=== PATIENT | male | born 1965 | race Caucasian/White ===

== ENCOUNTER 2025-04-20 10:24 | Emergency (ER) | payer OTHER ==
[~2025-04-20] VITALS: Ht 170.2 cm; Wt 115.0 kg
[2025-04-20] MEDS ORDERED: ELIQUIS5 MG PO (10:42)
[2025-04-20] MEDS ORDERED: CELECOXIB200 MG PO (10:43)
[2025-04-20 11:12] LABS: BASOPHILS 0.3 % (0.2-1.2); EOSINOPHILS 0.3 % (0.8-7.0); LYMPHOCYTES 8.8 % (21.8-53.1); MCH 29.9 PG (25.7-32.2); MCHC 33.5 g/dL (32.3-36.5); MCV 89.5 fL (79.0-92.2); MONOCYTES 12.9 % (5.3-12.2); NEUTROPHILS 77.0 % (34.0-67.9); RBC 5.31 M/uL (4.63-6.08)
[2025-04-20 11:24] LABS: INR 1.55 (0.80-1.30); PROTIME 17.6 Sec (11.2-14.2)
[2025-04-20 11:28] LABS: ALT (SGPT) 41.0 U/L (14-59); AST (SGOT) 34.0 U/L (15-37); GLOMERULAR FILTRATION RATE,EST 53.0 mL/min (>60); PROTEIN, TOTAL 7.4 g/dL (6.4-8.2); UREA NITROGEN 24.0 mg/dL (7-18)
[2025-04-20 11:31] LABS: LACTIC ACID, BLOOD 1.3 mmol/L (0.4-2.0)
[2025-04-20] MEDS ORDERED: VANCOMYCIN HCL 1 GM in DEXTROSE 5% 250 ML IV ONE (12:15)
[2025-04-20] MEDS ORDERED: SODIUM CHLORIDE 0.9% 2,000 ML IV PRN (12:15)
[2025-04-20] MEDS ORDERED: CEFEPIME HCL 2 GM in DEXTROSE 5% 100 ML IV ONE (12:15)
[2025-04-20] MEDS ORDERED: CEFEPIME HCL 2 GM VIAL ONE (12:19)
[2025-04-20] MEDS ORDERED: CEFEPIME HCL 2 GM in SODIUM CHLORIDE 0.9% 100 ML IV ONE (12:30)
[2025-04-20] MEDS ORDERED: HEParin SOD (PORCINE) 5,000 UNIT/ML SYR IV PRN ×3 (13:15)
[2025-04-20] MEDS ORDERED: HEParin SOD (PORCINE) 5,000 UNIT/ML SYR IV ONE (13:15)
[2025-04-20] MEDS ORDERED: HEPARIN SOD,PORK IN 0.45% NACL 500 ML IV SCH (13:15)
[2025-04-20 14:22] LABS: INR 1.44 (0.80-1.30); PROTIME 17.0 Sec (11.2-14.2)
[2025-04-20 14:50] VITALS: BP 154/100
== END 2025-04-20 14:50 | disposition short-term general hospital (02) ==
LOC: ED 10:24
PROVIDERS: Emergency Medicine
DX: A41.9 Sepsis, unspecified organism (principal); I70.90 Unspecified atherosclerosis; L03.116 Cellulitis of left lower limb; I10 Essential (primary) hypertension; K21.9 Gastro-esophageal reflux disease without esophagitis
CPT/HCPCS: 36415; 73590; 73630; 80053; 83605; 85025; 85610; 85730; 87040; 93926; 93971; 96365; 96375; 99291; J0692; J1644; J3370; J7060

== ENCOUNTER 2025-08-15 10:45 | Emergency (ER) | payer OTHER ==
[~2025-08-15] VITALS: Ht 170.2 cm; Wt 121.6 kg
[~2025-08-15 10:45] MED LIST: CELECOXIB200 MG PO; ELIQUIS5 MG PO
[2025-08-15] MEDS ORDERED: TETANUS-DIPHTHERIA TOXOIDS/PF 0.5 ML VIAL IM ONE (13:00)
[2025-08-15] MEDS ORDERED: DIPHTH,PERTUSS(ACELL),TET VAC 0.5 ML SYRINGE IM ONE (13:30)
[2025-08-15 13:49] VITALS: BP 144/80
== END 2025-08-15 13:50 | disposition home or self-care (01) ==
LOC: ED 10:45
DX: S61.213A Laceration without foreign body of left middle finger without damage to nail, initial encounter (principal); I10 Essential (primary) hypertension; K21.9 Gastro-esophageal reflux disease without esophagitis; Z86.718 Personal history of other venous thrombosis and embolism; Z79.01 Long term (current) use of anticoagulants; Z79.1 Long term (current) use of non-steroidal anti-inflammatories (NSAID); W29.8XXA Contact with other powered hand tools and household machinery, initial encounter
CPT/HCPCS: 12002; 90471; 99282-25